=== PATIENT | male | born 2005 | race Caucasian/White ===

== ENCOUNTER 2023-07-26 01:08 | Emergency (ER) | payer BC, SELFPAY ==
[2023-07-26 01:13] VITALS: BP 163/95; PULSE 110; RESP 15; TEMP 36.8; O2SAT 100
[2023-07-26 01:37] LABS: Basophils Absolute Auto 0.1 K/mm3 (0.0-0.1); Eosinophils Absolute Auto 0.3 K/mm3 (0-0.3); Eosinophils Percent Auto 5.8 % (0-4.4); Hematocrit 21.9 % (42.0-52.0); Hemoglobin 7.4 g/dL (14.0-18.0); Immature Granulocyte Absolute 0.01 K/mm3 (0.00-0.031); Immature Granulocyte Percent A 0.2 % (0-0.5); Lymphocytes Absolute Auto 0.72 K/mm3 (0.9-3.2); Lymphocytes Percent Auto 13.9 % (18.3-44.2); Mean Corpuscular HGB Conc 33.8 g/dl (32-36); Mean Corpuscular Hemoglobin 28.2 pg (26-34); Mean Corpuscular Volume 83.6 fl (80-100); Mean Platelet Volume 9.6 fl (7.4-10.4); Monocytes Absolute Auto 0.4 K/mm3 (0.1-0.6); Monocytes Percent Auto 8.5 % (2.6-8.5); Neutrophils Absolute Auto 3.7 K/mm3 (1.3-6.7); Neutrophils Percent Auto 70.6 % (45.5-73.1); Platelet Count Result 141 k/mm3 (150-375); Red Blood Count 2.62 M/mm3 (4.6-6.20); Red Cell Distribution Width 13.8 % (11.5-14.5); White Blood Count 5.2 K/mm3 (4.5-10.0)
[2023-07-26 01:50] LABS: Partial Thromboplastin Time 26.9 SECONDS (22.3-36.8); Prothrombin Time 13.3 Seconds (11.1-14.7)
--- NOTE | 2023-07-26 01:54 | ECG_ITS ---
Measurements Intervals [place] Rate: 96 P: 44 IN: 135 QRS: 34 QRSD: 91 T: 48 QT: 323 QTc: 408 Interpretive Statements SINUS RHYTHM BASELINE ARTIFACT- I, III, AVL NORMAL ECG NO PREVIOUS ECG AVAILABLE FOR COMPARISON Electronically Signed On 07-26-2023 8:25:21 CDT by Chente Shen D.O.
[2023-07-26 01:55] LABS: Alanine Aminotransferase 67 U/L (6-50); Albumin Level 4.1 g/dL (3.5-5.1); Alkaline Phosphatase 116 U/L (38-126); Anion Gap 9 mmol/L (8-16); Aspartate Amino Transferase 40 U/L (17-59); Bilirubin,Total 0.5 mg/dL (0.2-1.3); Blood Urea Nitrogen 72 mg/dL (9-20); Carbon Dioxide 30 mmol/L (22-30); Chloride 92 mmol/L (98-107); Estimated CRCL calculation 8 ml/min; Estimated Glomerular Filt Rate 4; Glucose 105 mg/dL (65-110); Potassium 4.3 mmol/L (3.4-5.0); Sodium 131 mmol/L (137-145)
[2023-07-26 05:27] VITALS: BP 108/56; PULSE 96; RESP 15; O2SAT 99
--- NOTE | 2023-07-26 05:51 | ED.GIBLEED ---
HPI - GI Bleed General Chief complaint: GI Bleed Stated complaint: threw up blood, sharp pain in lower left chest Time Seen by Provider: 07/26/23 05:27 Source: patient and family Limitations: no limitations History of Present Illness HPI Narrative: PAtient presents to the ED with mother and girlfriend for blood in vomit. Patient had an episode of non bloody non bilious emesis last night around midnight then had a second episode shortly after that had streaks of bright red blood. No further emesis, no nausea, no abdominal pain. Feels well currently. Peritoneal dialysis for months and follows with multiple doctors. Most recent Cr is 14. No blood thinners. No chest pain, shortness of breath, palpitations, recent injuries, melena, hematochezia, light headedness, new or changed medications, sick contacts, cough, fever, alcohol use, history of liver failure. Admits to a brief sharp pain in the left infero lateral ribs when he vomited, no pain since. Admits to sporadic emesis over the past few months. Review of Systems Review of Systems: A 10 system review of systems was completed on the patient and is negative except for what is stated in the HPI. Nursing and ancillary documentation was reviewed. PMFSH Comments At time of signature, I have reviewed and agree with nursing past medical, surgical, social and family history unless otherwise noted. Please see the nursing chart for further information. There is no relevant family history pertinent to the presenting complaint. PMHx of peritoneal dialysis, HTN on 3 antihypertensives including metoprolol, ESRD. NKDA. Exam Narrative: CONST: No acute distress. Well nourished. HENMT: Head is normocephalic and atraumatic. Moist mucous membranes. No posterior oropharynx erythema. EYES: No conjunctival icterus, injection, or pallor. PERRL. NECK: No meningeal signs. RESP: Able to speak in full sentences. Normal respiratory effort. CTAB. CARDIO: Regular rate. Regular rhythm. 2+ DP and radial pulses bilaterally. GI: Nondistended. No tenderness to palpation. Soft. Peritoneal dialysis catheter in place without surrounding erythema or warmth or fluctuance. : No CVA tenderness to palpation. SKIN: No rashes or lesions noted on exposed skin. NEURO: Oriented x3. Moves all extremities. EXTREM: No pedal edema. PSYCH: Normal affect. Course Vital Signs Vital signs: Vital Signs Temperature 98.3 F 07/26/23 01:13 Pulse Rate 110 H 07/26/23 01:13 Respiratory Rate 15 07/26/23 01:13 Blood Pressure 163/95 H 07/26/23 01:13 Pulse Oximetry 100 07/26/23 01:13 Oxygen Delivery Room Air 07/26/23 01:13 Temperature 98.3 F 07/26/23 01:13 Pulse Rate 84 07/26/23 06:23 Respiratory Rate 16 07/26/23 06:23 Blood Pressure 132/76 07/26/23 06:23 Pulse Oximetry 98 07/26/23 06:23 Oxygen Delivery Room Air 07/26/23 01:13 MDM - GI Bleed MDM Narrative Medical decision making narrative: Patient presents with the above complaint. Initial vitals are remarkable for tachycardia, patient wasn't tachycardic on my examination and vitals stable upon my assessment. Patient appears in no acute distress. Presentation most consistent with Tana-quezada syndrome. No nausea and no emesis in the emergency department. Labs reviewed with patient and family. Potential diagnosis discussed, condition explained, return precautions provided. Patient is at his baseline Creatinine and has prompt follow up with his environmental educator. No signs or symptoms of anemia. Vitals stable throughout ED course. Patient given famotidine in the ED and prescribed zofran to use as needed for nausea. Tolerating PO. Stable gait. Notes plan to return for any new or concerning symptoms. Discharged in stable condition. Differential Diagnosis Differential diagnosis: Likely gastritis and Tana-Quezada syndrome Medical Records Attestation: I reviewed the patient's medical records. Medical records narrative: Patient reviewed
[2023-07-26] MEDS: FAMOTIDINE 20 MG/2 ML VIAL IV PUSH (06:22)
[2023-07-26 06:23] VITALS: BP 132/76; PULSE 84; RESP 16; O2SAT 98
== END 2023-07-26 06:23 | disposition home or self-care (01) ==
LOC: ANHED 06:21
PROVIDERS: Emergency Provider Student in an Organized Health Care Education/Training Program
DX: K22.6 Gastro-esophageal laceration-hemorrhage syndrome (principal); I12.0 Hypertensive chronic kidney disease with stage 5 chronic kidney disease or end stage renal disease; N18.6 End stage renal disease; N28.9 Disorder of kidney and ureter, unspecified; Z99.2 Dependence on renal dialysis
CPT/HCPCS: 36415; 80053; 85025; 85610; 85730; 86850; 86900; 86901; 93005; 96374; 99284

== ENCOUNTER 2024-08-01 11:34 | Outpatient (CLI) | payer BC, SELFPAY | END 2024-08-01 11:35 | disposition home or self-care (01) | DX: D84.821 Immunodeficiency due to drugs (principal); Z94.0 Kidney transplant status; Z79.899 Other long term (current) drug therapy | CPT/HCPCS: 36415 ==

== ENCOUNTER 2025-01-03 19:36 | Emergency (ER) | payer BC, MEDICARE, SELFPAY ==
[2025-01-03 19:44] VITALS: BP 136/84; PULSE 80; RESP 20; TEMP 37.1; O2SAT 100
--- NOTE | 2025-01-03 19:52 | ED_ITS ---
HPI - URI/Sore Throat General Chief Complaint: Upper Respiratory Infection Stated Complaint: SINUS/HEADACHE/COUGH Time Seen by Provider: 01/03/25 20:05 Source: patient and RN notes reviewed Mode of arrival: ambulatory Limitations: no limitations History of Present Illness HPI Narrative: 19-year-old male with history of kidney transplant presents with concern for upper respiratory infection for 5 days. Reports on Sunday he began having cough, runny nose, stuffy nose. He had a negative COVID and flu test 3 days into his illness.. He has been using antihistamines, Tylenol, 2 days of Afrin without much relief. Denies fever, aches, chills, sweats. MD elicited complaint: cough and nasal congestion Related Data Allergies Allergy/AdvReac Type Severity Reaction Status Date / Time No Known Allergies Allergy Verified 01/03/25 19:53 Review of Systems Review of Systems: CONSTITUTIONAL: Denies malaise, chills, sweats, or fever. EYES: Denies visual changes, redness, or discharge. ENT: Reports rhinorrhea, congestion. Denies sinus pain, otalgia and sore throat. CARDIOVASCULAR: Denies chest pain, palpitations, or edema. RESPIRATORY: Reports cough. Denies dyspnea. GASTROINTESTINAL: Denies abdominal pain, nausea, vomiting, diarrhea SKIN: Denies rash or itching. MUSCULOSKELETAL: Denies myalgia. NEUROLOGIC: Denies headache. All systems reviewed & are unremarkable except as noted in HPI and below PMFSH Comments At time of signature, agree with nursing past medical, surgical, social and family history. There is no relevant family history pertinent to the presenting complaint Exam Narrative: GENERAL: Well-appearing, well-nourished, and in no acute distress. HEAD: Normocephalic EYES: PERRLA, conjunctivae clear ENT: Nares clear, turbinates edematous and erythematous, clear discharge. Mucous membranes moist. TM pearly delcid with dull light reflex bilaterally; no tragal tenderness. Oropharynx not erythematous without lesions. Tonsils not enlarged and without exudate, no drooling, no hoarseness, no trismus, uvula midline. NECK: Supple. No lymphadenopathy CHEST: Scattered wheeze, Clear to auscultation, breath sounds equal. No rhonchi, rales, or stridor. No respiratory distress, speaks in full sentences. HEART: Regular rate and rhythm. No murmur heard. SKIN: Warm, dry, no rash. NEURO: Alert and oriented x3. PSYCH: Normal mood and affect Course Course Emergency Course: Patient is aware of diagnosis, understands and agrees to treatment plan. Anticipatory guidance given. Patient agrees to follow-up as directed and is aware of reasons to seek care at the emergency department. Portions of this record may have been created with voice recognition software Level of Care: Express Care Visit Vital Signs Vital signs: Vital Signs Temperature 98.8 F 01/03/25 19:44 Pulse Rate 80 01/03/25 19:44 Respiratory Rate 20 01/03/25 19:44 Blood Pressure 136/84 01/03/25 19:44 Pulse Oximetry 100 01/03/25 19:44 Temperature 98.8 F 01/03/25 19:44 Pulse Rate 80 01/03/25 19:44 Respiratory Rate 20 01/03/25 19:44 Blood Pressure 136/84 01/03/25 19:44 Pulse Oximetry 100 01/03/25 19:44 Reviewed. MDM - URI/Sore Throat MDM Narrative Medical decision making narrative: Differential diagnosis considered: [place] virus, strep pharyngitis, allergic rhi nitis, upper respiratory tract infection, sinusitis, rhinosinusitis, nasopharyngitis. viral pharyngitis, otitis media, otitis externa, pneumonia, bronchitis, viral cough syndrome, viral syndrome, and influenza. Exam findings show no acute concerns or changes; patient is non-toxic appearing and is in no distress. Patient is appropriate for outpatient treatment and follow-up. Lab Data Attestation: I reviewed the patient's lab results. Critical Care Time Critical Care Time Critical Care Time: No Discharge Plan Discharge Clinical Impression: Upper respiratory infection Patient Disposition: Home, Self-Care Condition: Stable Instructions: Upper Respiratory Infection (ED) Additional Instructions: Viral illness may last between 7-21 days; antibiotics do not cure viral illness and are NOT recommended at this time. Recommend antihistamine such as Benadryl at night time and Zyrtec or Inessa during the day Use inhaler as needed for cough, wheezing, shortness of breath or chest tightness. Also, recommend symptomatic treatment includes: rest, fluids, and increase humidity of the air at home. Recommend Acetaminophen as directed on the bottle to reduce fever, pain, headache. Avoid smoking/second-hand smoke. Please schedule a follow-up visit with your personal physician for further evaluation and treatment within 3-5days. If your symptoms persist, change or worsen significantly before you can contact your personal physician then please, without delay, go to the emergency department for further evaluation. Patient Language: Greek Prescriptions: New methylprednisolone [Medrol (Mane)] 4 mg tablets,dose pack See Rx Instructions .ROUTE .COMPLEX Qty: 21 0RF Rx Instructions: orally per package directions albuterol sulfate 90 mcg/actuation HFA aerosol inhaler 2 puff INHALATION QID PRN (Reason: shortness of breath or wheezing) Qty: 8.5 0RF No Action ondansetron 4 mg tablet,disintegrating 4 mg PO Q8H PRN (Reason: nausea and vomiting) Qty: 7 0RF Follow-up/Referrals: Christiano Davis,Marycruz [Other] Stand Alone Forms: Work/School Release IP Time of Disposition: 20:13
== END 2025-01-03 20:15 | disposition home or self-care (01) ==
PROVIDERS: Emergency Provider Nurse Practitioner
DX: J11.1 Influenza due to unidentified influenza virus with other respiratory manifestations (principal)
CPT/HCPCS: 99213; G0463

== ENCOUNTER 2025-01-06 20:16 | Emergency (ER) | payer BC, MEDICARE, SELFPAY ==
--- OUTSIDE RECORDS SUMMARY | 2025-01-06 20:19 | XMS_ITS | Clinical Summary ---
Author Organization [facility] Address [address] [place] [address] Care Team Providers Care [employer] Name Role Phone Stefanie Alvarado MD Primary Care Provider Social History Tobacco Use Types Packs/Day Years Used Date Smoking Tobacco: Never Smokeless Tobacco: Never Sex and Gender Information Value Date Recorded Sex Assigned at Not on file Legal Sex Male 9:58 AM CDT Gender Identity Not on file Sexual Orientation Not on file Last Filed Vital Signs Vital Sign Reading Time Taken Comments Blood Pressure 102/68 08/02/2019 8:34 PM CDT Pulse 81 08/02/2019 8:34 PM CDT Temperature 36.4 C (97.6 F) 08/02/2019 8:34 PM CDT Respiratory Rate 16 08/02/2019 8:34 PM CDT Oxygen Saturation 98% 08/02/2019 8:34 PM CDT Inhaled Oxygen Concentration - - Weight 63.5 kg (140 lb) 08/02/2019 8:34 PM CDT Height 182.9 cm (6') 08/02/2019 8:34 PM CDT Body Mass Index 18.99 08/02/2019 8:34 PM CDT Plan of Treatment Health Maintenance Due Date Last Done Comments Annual Physical 2006 Meningococcal B Vaccine (1 of 2 - Standard) 2019 COVID-19 Vaccine (3 - season) 2024 12/15/2022, 11/04/2021 Influenza Adult (#1) 2024 11/03/2022, 09/13/2012, 09/22/2009 DTaP, Tdap and Td Vaccines (7 - Td or Tdap) 05/05/2025 05/05/2015, 06/22/2008, 12/27/2004, Additional history exists Hepatitis B Vaccines Completed 01/25/2004, 2003, 2003 HPV Vaccines Completed 07/12/2017, 06/19, 05/05/2015 Meningococcal Vaccine Completed 07/08/2021, 015 Pneumococcal Vaccine: Pediatrics (0 to 5 Years) and At-Risk Patients (6 to 64 Years) Completed 11/06/2022, 06/22/2008, 01/25/2004 Hepatitis C Completed 09/25/2023, 05/2023, 09/24/2023 RSV Immunizations Under 20 Months Aged Out No longer eligible based on patient's age to complete this topic Insurance Care Teams [employer] Relationship Specialty Start Date End Date Stefanie Alvarado MD PCP - General PEDIATRICS 08/02/19
--- OUTSIDE RECORDS SUMMARY | 2025-01-06 20:19 | XMS_ITS | Clinical Summary ---
Author Organization [facility] Address [address] [place] [address] Care Team Providers Care Joint Supervisor Name Role Phone Marycruz Boyd MD Primary Car e Provider Allergies No known active allergies Medications metoprolol tartrate (LOPRESSOR) 25 mg immediate release tablet Take 1 tablet (25 mg total) by mouth 2 (two) times a day Active tacrolimus 1 mg immediate-release capsule Take 1 capsule (1 mg total) by mouth 2 (two) times a day Active mycophenolate mofetil (CELLCEPT) 250 mg capsule Take by mouth 2 (two) times a day Active ondansetron ODT (ZOFRAN-ODT) 4 mg disintegrating tablet Dissolve 1 tablet oral every 4 hours as needed for nausea or vomiting. 15 tablet Active Surgical History Surgery Date Site/Laterality Comments KIDNEY TRANSPLANT 09/19/2023 - 10/18/2023 Social History Tobacco Use Types Packs/Day Years Used Date Smoking Tobacco: Never Tobacco Cessation:Counseling Given: Not Answered Personal Safety Answer Date Recorded Have you ever been in or are you currently in a harmful physical or emotional relationship or is someone making you feel afraid or unsafe? Denies 08/19/2024 Sex and Gender Information Value Date Recorded Sex Assigned at Not on file Legal Sex Male 12:46 PM CDT Gender Identity Not on file Sexual Orientation Not on file Obstetrics History Last Filed Vital Signs Vital Sign Reading Time Taken Comments Blood Pressure 111/59 08/19/2024 7:11 PM CDT Pulse 75 08/19/2024 7:11 PM CDT Temperature 36.9 C (98.4 F) 08/19/2024 12:53 PM CDT Respiratory Rate 16 08/19/2024 7:11 PM CDT Oxygen Saturation 99% 08/19/2024 7:11 PM CDT Inhaled Oxygen Concentration - - Weight 72.1 kg (159 lb) 08/19/2024 12:53 PM CDT Height 189.2 cm (6' 2.5 ) 08/19/2024 12:53 PM CD T Body Mass Index 20.14 08/19/2024 12:53 PM CDT Plan of Treatment Health Maintenance Due Date Last Done Comments Depression Screening 2003 Hepatitis C Screening 2003 Pneumococcal vaccine <65 (1 of 2 - PPSV23) 08/17/2008 06/22/2008, 01/25/2004 Meningococcal B Vaccine (1 o f 2 - Standard) 2019 Regular Well Visit/Exam 18-64 2021 Zoster Vaccine (1 of 2) 2022 Covid-19 Vaccine (3 - Modern a risk series) 01/12/2023 12/15/2022, 11/04/2021 Influenza Vaccine (#1) 2024 , 09/13/2012, 09/22/2009 DTaP/Tdap/Td Vaccine (7 - Td or Tdap) 05/05/2025 05/05/2015, 06/22/2008, 12/27/2004, Additional history exists Varicella Vaccines Completed 06/22/2008, 08/04/2004 HPV Vaccines Completed 07/12/2017, 06/19, 05/05/2015 Meningococcal Vaccine Completed 07/08/2021, 015 Hepatitis B Screening Completed 12/22/2022 , 01/25/2004, 2003, Additional history exists Insurance [employer] CHOICE OOS [address] [id number] Care Teams Joint Supervisor Relationship Specialty Start Date End Date Marycruz Boyd MD [address] [place] [id number] PCP - General Internal Medicine 08/19/24
--- OUTSIDE RECORDS SUMMARY | 2025-01-06 20:19 | XMS_ITS | Referral Summary ---
Author Organization [facility] al Address [address] [place] [address] Care Team Providers Care Monitor Technician Name Role Phone Marycruz Boyd MD Primary [...] for nausea or vomiting. 15 tablet Active Social History Tobacco Use Types Packs/Day Years [...] 08/19/2024 12:53 PM CDT Plan of Treatment Not on file Insurance [employer] CHOICE OOS Care Teams Monitor Technician Relationship Specialty Start Date End Date Marycruz Boyd MD [address] [place] [id number] PCP - General Internal Medicine 08/19/24
--- OUTSIDE RECORDS SUMMARY | 2025-01-06 20:19 | XMS_ITS | Data Portability ---
Author Organization [facility], [address] [facility] ([place]) Address [address] [place] [address] Care Team Providers Care Business Unit Director Name Role Phone CARLEEN BRADLEY Primary Care Provider Assessment Encounter Date Assessment Date Assessment LastModified by Organization Details LastModified Time 06/03/2024 06/03/2024 This 18-year-old gentleman is seen here for the first time with request of follow-up of urgent care. In May 24 he was playing pool basketball, and got elbowed to the nose. He did have some slight bleeding at that time, and is now here for further evaluation. He had x-rays performed at urgent care on May 25, which revealed a mildly displaced nasal fracture. Overall he feels he can breathe pretty well through his nose, and says that it is healing pretty well. He denies significant pain to his face. PHYSICAL EXAMINATION: Well developed, well nourished in no acute distress. Patient able to communicate verbally with a normal voice. GENERAL: Inspection of head reveals no significant scars, lesions, or masses with good facial symmetry. EYES: Extraocular movements were intact with normal gaze. HEAD AND FACE: Overall appearance appeared normal. No scars, lesions, or masses. EARS: Both external pinnas were symmetric and without lesions. RIGHT external canal: normal, RIGHT tympanic membrane: clear and mobile . LEFT external canal: normal. LEFT tympanic membrane: clear and mobile. NOSE: External nose appeared slight deviation to the right side, but without significant nasal bone depression, and overall there is been minimal change in the nose without significant depression of either nasal bone Septum was relatively straight and no evidence of septal fracture. nasal mucosa appeared normal. . MOUTH AND PHARYNX:Lips, and gums were unremarkable Exam of oral cavity, including oral mucosa, hard and soft palate were normal Tongue was normal Tonsils were small to absent, and posterior pharynx, appeared within normal limits. NECK: Supple with no evidence of masses, and palpation of the neck revealed no palpable lymphadenopathy; thyroid appeared normal and symmetric; trachea midline; overall appearance of neck appeared symmetrical. PLAN: 1. Evidence of a mild nasal fracture without significant displacement, and good airways bilaterally. I discussed with him my recommendation for observation at this time, and no surgical management is indicated. 2. He may follow me if he has significant further issues, otherwise follow-up with me as needed. [email or web address] Not available 06/16/2024 04:27:19 Plan of Treatment Reminders Order Date Submit Date Provider Last Modified By Organization Details Last Modified Time Details Appointments None record ed. Lab None record ed. Referral None record ed. Procedures None record ed. Surgeries None record ed. Imaging None record ed. Medication Orders None record ed. Patient TargetsNo targets recorded. Patient InstructionsNo instructions recorded. Reason for Referral None Reported. Problems Name Problem SNOMED Code Status Onset Date Resolution Date Notes Provider Name and Address Organization Details Recorded Time Closed fracture of nasal bones [id number] Active 024 Nando Stephens MD [address], [address] , [facility] 4 04:28:12 Problem Notes None recorded. Medical Equipment None Reported. Medications Name Sig Start Date Stop Date Status Note LastModified by Organization Details LastModified Time torsemide 20 mg tablet TAKE 2 TABLETS BY MOUTH ONCE DAILY 06/03 completed Not Available Not Available Not Available clonidine 0.2 mg/24 hr weekly transdermal patch APPLY 1 PATCH TOPICALLY ONCE A WEEK 06/03 completed Not Available Not Available Not Available metoprolol tartrate 100 mg tablet TAKE 1 TABLET BY MOUTH TWICE DAILY 06/03 completed Not Available Not Available Not Available sulfamethox azole 400 mg-trimetho prim 80 mg tablet TAKE 1 TABLET BY MOUTH ONCE DAILY 06/03 completed Not Available Not Available Not Available mycophenola te mofetil 250 mg capsule TAKE 3 CAPSULES BY MOUTH EVERY 12 HOURS - DO NOT BREAK, CUT, OR OPEN CAPSULES active Not Available Not Available No t Available tacrolimus 5 mg capsule, immediate-r elease TAKE 1 CAPSULE BY MOUTH TWICE DAILY 06/03 completed Not Available Not Available Not Available metoprolol succinate ER 100 mg tablet,exte nded release 24 hr TAKE 1 TABLET BY MOUTH ONCE DAILY 06/03 completed Not Available Not Available Not Available amlodipine 10 mg tablet TAKE 1 TABLET BY MOUTH ONCE DAILY 06/03 completed Not Available Not Available Not Available calcitriol 0.5 mcg capsule TAKE 1 CAPSULE BY MOUTH THREE TIMES A WEEK 06/03 completed Not Available Not Available Not Available metoprolol tartrate 50 mg tablet TAKE 1 TABLET BY MOUTH TWICE DAILY active Not Available Not Available No t Available gentamicin 0.1 % topical cream APPLY TO EXIT SITE DAILY 06/03 completed Not Available Not Available Not Available hydroxyzine HCl 25 mg tablet TAKE 1/2 TO 1 (ONE-HALF TO ONE) TABLET BY MOUTH THREE TIMES DAILY NEEDED active Not Available Not Available No t Available nifedipine ER 60 mg tablet,exte nded release TAKE 1 TABLET BY MOUTH TWICE DAILY 06/03 completed Not Available Not Available Not Available losartan 100 mg tablet TAKE 1 TABLET BY MOUTH ONCE DAILY 06/03 completed Not Available Not Available Not Available tacrolimus 1 mg capsule, immediate-r elease TAKE 4 CAPSULES BY MOUTH TWICE DAILY active Not Available Not Available No t Available multivitami n 1 daily active Not Available Not Available Not Available lanthanum 750 mg chewable tablet CHEW AND SWALLOW 2 TABLETS BY MOUTH THREE TIMES DAILY WITH MEALS AND 2 TABLETS WITH 2 SNACKS PER DAY 06/03 completed Not Available Not Available Not Available Vitals Date Recorded Body height Body mass index (BMI) Percentile per age and sex Body mass index (BMI) Body weight Body temperature Heart rate Systolic blood pressure Diastolic blood pressure Provider Name and Address Organization Details Last Updated DateTime 4 187.96 cm 13 % 20.5 kg/m2 28059.6 2 g 98.1 [degF] 66 /min 93 mm[Hg] 63 mm[Hg] Brenda bartholomew [facility] 4 15:39:29 Social History None recorded. Functional Status None recorded. Mental Status None recorded. Family History Nothing Reported. Medical History No medical history recorded. Past Encounters Encounter ID Performer Location Encounter Start Date Encounter Closed Date Diagnosis/Indication Diagnosis SNOMED-CT Code Diagnosis ICD10 Code Diagnosis Note [id number] Nando Stephens MD [facility] ([place]) [address] [facility] [place] [address] 06/03/2024 15:26:09 06/03/2024 16:19:01 Closed fracture of nasal bones [id number] S02.2XXD Health Concerns Section Related Observation LastModified by Organization Detai ls LastModified Time None Recorded Concern Status LastModified by Organization Details LastModified Time None Recorded Advance Directives Directive None Recorded Payers Encounter Date Sequence Insurance Name Policy Number Policy Lopes Covered Member ID Lopes Member ID Guarantor Name 06/03/2024 1 [place] [id number] Mati Siddiqui [id number] Mati Siddiqui
--- NOTE | 2025-01-06 20:42 | ED.GENADULT ---
HPI - General Adult General Chief complaint: Upper Respiratory Infection Stated complaint: SOB, flu like symptoms x1week Time Seen by Provider: 01/06/25 20:40 History of Present Illness HPI narrative: This is a 19-year-old male history of kidney transplant on tacrolimus/mycophenolate presenting for fevers. Patient has had flu-like symptoms for the last 7 days. They include cough congestion and fevers up to 100.7. Denies nausea vomiting diarrhea. He was instructed to come in for evaluations fever due to his kidney. Related Data Allergies Allergy/AdvReac Type Severity Reaction Status Date / Time No Known Allergies Allergy Verified 01/06/25 20:17 Exam Narrative: APPEARANCE: No apparent distress. Head: atraumatic. EYES: EOMI, NOSE: Atraumatic NECK: Trachea midline RESPIRATORY: No increased rate of breathing CTAB CARDIOVASCULAR: RRR, nontender ABDOMINAL: Non-distended, right lower quadrant abdominal mass, nontender MUSCULOSKELETAl: No obvious deformities NEURO: Alert. Moving 4/4 extremities SKIN:: Warm, dry. Normal color PSYCHIATRIC: Normal affect Medical Decision Making MDM Narrative Medical decision making narrative: -Course: 19-year-old male presenting flu-like symptoms. Positive for influenza. Kidney function creatinine of 1.87. Reached out to his transplant team he runs from 1.4-1.6. They recommended IV fluids repeat lab work in several days. Results were discussed with patient is comfortable being discharged home. Outpatient follow-up. Return precautions given. Discharge Plan Discharge Clinical Impression: Flu Patient Disposition: Home, Self-Care Condition: Stable Instructions: Antibiotic Form, Viral Syndrome (ED) Additional Instructions: You have the flu. Please drink plenty of fluids. Please follow-up with your primary care physician to get repeat kidney function tests in 3-5 days. Return condition is worsening. Patient Language: [place] Prescriptions: No Action methylprednisolone [Medrol (Mane)] 4 mg tablets,dose pack See Rx Instructions .ROUTE .COMPLEX Qty: 21 0RF Rx Instructions: orally per package directions albuterol sulfate 90 mcg/actuation HFA aerosol inhaler 2 puff INHALATION QID PRN (Reason: shortness of breath or wheezing) Qty: 8.5 0RF ondansetron 4 mg tablet,disintegrating 4 mg PO Q8H PRN (Reason: nausea and vomiting) Qty: 7 0RF Follow-up/Referrals: UNKNOWN,DOCTOR [Primary Care Provider] -
--- NOTE | 2025-01-06 20:43 | ECG_ITS ---
Test Date: 2025-01-06 20:55:07 Measurements Intervals [place] Rate: 93 P: 42 MI: 127 QRS: 49 QRSD: 80 T: 50 QT: 309 QTc: 386 Interpretive Statements SINUS RHYTHM CONSIDER RIGHT VENTRICULAR CONDUCTION DELAY BASELINE WANDER- AVR, AVL, AVF BORDERLINE ECG No previous ECG available for comparison Electronically Signed On 01-07-2025 07:03:58 [employer] by Chente Shen D.O.
[2025-01-06] MEDS: SODIUM CHLORIDE 0.9% IV 1,000 ML 999 ML IV CONT (21:02)
--- OUTSIDE RECORDS SUMMARY | 2025-01-06 21:03 | XMS_ITS | Clinical Summary ---
Author Organization [facility] Address [address] [place] [address] Care Team Providers Care Machine Maintenance Repairer Name Role Phone Stefanie Alvarado MD Primary [...] to complete this topic Insurance Care Teams Machine Maintenance Repairer Relationship Specialty Start Date End Date Stefanie Alvarado MD PCP - General PEDIATRICS 08/02/19
[2025-01-06 21:04] VITALS: BP 118/76; PULSE 99; RESP 19; TEMP 36.8; O2SAT 100; O2SAT 99
[2025-01-06 21:10] LABS: Basophils Percent Auto 0.3 % (0.2-1.2); Hematocrit 36.6 % (42.0-52.0); Immature Granulocyte Absolute 0.03 K/mm3 (0.00-0.031); Immature Granulocyte Percent A 0.9 % (0-0.5); Lymphocytes Absolute Auto 0.46 K/mm3 (0.9-3.2); Lymphocytes Percent Auto 13.3 % (18.3-44.2); Mean Corpuscular HGB Conc 32.8 g/dl (32-36); Mean Corpuscular Hemoglobin 27.4 pg (26-34); Mean Corpuscular Volume 83.6 fl (80-100); Mean Platelet Volume 9.7 fl (7.4-10.4); Monocytes Absolute Auto 0.6 K/mm3 (0.1-0.6); Monocytes Percent Auto 17.6 % (2.6-8.5); Neutrophils Absolute Auto 2.4 K/mm3 (1.3-6.7); Neutrophils Percent Auto 67.9 % (45.5-73.1); Platelet Count Result 203 k/mm3 (150-375); Red Blood Count 4.38 M/mm3 (4.6-6.20); Red Cell Distribution Width 12.7 % (11.5-14.5); White Blood Count 3.5 K/mm3 (4.5-10.0)
[2025-01-06 21:20] LABS: Alanine Aminotransferase 16 U/L (6-50); Albumin Level 4.3 g/dL (3.5-5.1); Alkaline Phosphatase 67 U/L (38-126); Anion Gap 12 mmol/L (4-12); Aspartate Amino Transferase 26 U/L (17-59); Bilirubin,Total 0.4 mg/dL (0.2-1.3); Blood Urea Nitrogen 22 mg/dL (9-20); Calcium 9.9 mg/dL (8.4-10.2); Carbon Dioxide 25 mmol/L (22-30); Chloride 99 mmol/L (98-107); Estimated CRCL calculation 58 ml/min; Estimated Glomerular Filt Rate 46; Glucose 106 mg/dL (65-110); Lipase 171 U/L (23-300); Sodium 136 mmol/L (137-145)
[2025-01-06 21:51] LABS: Influenza A QL RT-PCR Positive (Negative); Influenza B QL RT-PCR Negative (Negative); RSV RNA, RT-PCR Negative (Negative); SARS-CoV-2 RNA PCR Negative (Negative)
[2025-01-06 22:14] LABS: Add Urine Microscopic? YES; Appearance Urine Clear (Clear); Bacteria Urine None Seen /hpf; Bilirubin Urine Negative (Negative); Blood Urine Negative (Negative); Color Urine Yellow (Yellow); Glucose Urine UA Negative (Negative); Ketones Urine Negative (Negative); Leukocyte Esterase Ur Negative LEU/UL (Negative); Nitrate Urine Negative (Negative); Non Pathogenic Casts 0-2; Protein Urine Trace mg/dL (Negative); RBC Urine 0-2 /hpf (0-2); Specific Grav Ur 1.009 (1.001-1.035); Squamous Epithelial Cell Urine None Seen /hpf (Few); Urobilinogen Urine 0.2 mg/dL (<2.0); WBC Urine 0-5 /hpf (0-3); pH Urine 5.5 (5.0-9.0)
== END 2025-01-06 23:19 | disposition home or self-care (01) ==
PROVIDERS: Emergency Provider Emergency Medicine
DX: J11.1 Influenza due to unidentified influenza virus with other respiratory manifestations (principal); Z94.0 Kidney transplant status
CPT/HCPCS: 36415; 80053; 81001; 83690; 85025; 87637; 93005; 96360; 99283; J7030